=== PATIENT | male | born 1985 | race Caucasian/White ===

== ENCOUNTER 2016-09-02 08:48 | Emergency (ER) | payer OTHER ==
[~2016-09-02] VITALS: Ht 167.6 cm; Wt 90.0 kg
[2016-09-02 08:50] VITALS: BP 140/86; PULSE 110; RESP 20; TEMP 98.4; O2SAT 96
[2016-09-02] MEDS ORDERED: LISI2.5T3 PO (09:14)
[2016-09-02] MEDS ORDERED: OMEP10CA PO (09:14)
[2016-09-02] MEDS ORDERED: LANTUS2P SQ (09:14)
[2016-09-02] MEDS ORDERED: LIPI10TA PO (09:14)
[2016-09-02] MEDS ORDERED: NOVOLOGP2 SQ (09:14)
--- NOTE | 2016-09-02 09:56 | PD ---
HPI Chief Complaint: Abdominal Pain Time Seen by Provider: 09:41 Travel History International Travel<30 days: No Contact w/Intl Traveler<30days: No Traveled to known affect area: No History of Present Illness HPI The patient is a 30-year-old male who presents emergency department for left upper quadrant abdominal pain. The patient states he developed left upper quadrant abdominal pain earlier today while doing sit ups. The pain initially was sharp, located left upper quadrant, was worse with sitting upright. The patient did state his pain improved at rest, however, when he tried to sit up again he developed the pain in the left upper quadrant once again. The patient does note a history of hiatal hernia, diabetes, hypertension, hyperlipidemia, and sleep apnea. The patient is currently followed by a primary physician in [place], [place] where he used to live. He denies any known history of midline abdominal hernias or inguinal hernias. He denies any associated nausea, vomiting, diarrhea, or change in bowel habits. He does have a history of reflux which he attributes to his hiatal hernia. He also has a history of anemia secondary to his hiatal hernia, according to his report. He denies any history pancreatitis. [facility] Past Medical History Anemia: Yes Diabetes: Yes Patient Takes Glucophage: Yes Hypertension: Yes Past Surgical History Surgical History: No Previous Surgery Social History Alcohol Use: No Tobacco Use: No Substance Use: No Allergies-Medications (Allergen,Severity, Reaction): Coded Allergies: No Known Allergies (Unverified , 09/02/16) Reported Meds & Prescriptions Reported Meds & Active Scripts Active Reported Lipitor (Atorvastatin Calcium) 10 Mg Tab 10 Mg PO HS Omeprazole 10 Mg Cap 10 Mg PO DAILY Lantus Inj (Insulin Glargine) 1,000 Unit/10 Ml Vial 50 Units SQ HS Novolog Inj (Insulin Aspart) 1,000 Unit/10 Ml Vial 0 SQ DIRECTED Sliding Scale as directed. Lisinopril 2.5 Mg Tab 2.5 Mg PO DAILY Review of Systems Except as stated in HPI: all other systems reviewed are Neg General / Constitutional: No: Fever Cardiovascular: No: Chest Pain or Discomfort Respiratory: No: Shortness of Breath Gastrointestinal: Positive: Abdominal Pain, No: Nausea, Vomiting, Diarrhea Genitourinary: No: Dysuria Physical Exam Narrative GENERAL: Awake, alert, nontoxic-appearing 30-year-old male who appears his stated age and is in no acute respiratory distress. SKIN: Warm and dry. HEAD: Atraumatic. Normocephalic. EYES: Pupils equal and round. No scleral icterus. No injection or drainage. ENT: No nasal bleeding or discharge. Mucous membranes pink and moist. NECK: Trachea midline. No JVD. CARDIOVASCULAR: Regular rate and rhythm. No murmur appreciated. RESPIRATORY: No accessory muscle use. Clear to auscultation. Breath sounds equal bilaterally. GASTROINTESTINAL: Abdomen soft, non-tender, nondistended. No rebound tenderness. Pain elicited with standing upright against resistance. MUSCULOSKELETAL: No obvious deformities. No clubbing. No cyanosis. No edema. NEUROLOGICAL: Awake and alert. No obvious cranial nerve deficits. Motor grossly within normal limits. Normal speech. PSYCHIATRIC: Appropriate mood and affect; insight and judgment normal. Data Data Last Documented VS Vital Signs Date Time Temp Pulse Resp B/P Pulse Ox O2 Delivery O2 Flow Rate FiO2 09/02/16 08:50 98.4 110 20 140/[address] Abd/Pel W/O Iv Contrast (09/02/16 ) [facility] Medical Decision Making Medical Screen Exam Complete: Yes Emergency Medical Condition: Yes Medical Record Reviewed: Yes Interpretation(s) Last Impressions Abdomen/Pelvis CT 09/02/16 0000 Signed Impressions: Service Date/Time: August 10:32 - CONCLUSION: Fatty liver. Otherwise unremarkable CT of the abdomen and pelvis without contrast. Farhad aGlindo MD Differential Diagnosis Differential diagnoses includes incarcerated hernia, strangulated hernia, sports hernia, muscle strain, diaphragmatic hernia, PUD, pancreatitis. Narrative Course The patient's history and physical examination are consistent with muscle strain versus sports hernia. Therefore, CT the abdomen and pelvis was ordered to rule out intra-abdominal incarcerated hernia. CT of the abdomen and pelvis is unremarkable. No evidence of intra-abdominal incarcerated hernia. The patient most likely has an abdominal strain. The patient will be discharged home on anti-inflammatories and is advised to follow-up with his primary physician. Diagnosis Primary Impression: Abdominal wall strain Qualified Code: S39.011A - Abdominal wall strain, initial encounter Patient Instructions: General Instructions Additional Instructions: Medications as directed. Avoid exercises and movements that initiate pain. Ibuprofen as directed. Follow-up with your primary physician. Med/Other Pt SpecificInfo: Prescription(s) given Scripts Ibuprofen 400 Mg See487 Mg PO Q6H PRN (PAIN SCALE 1 TO 10) #20 TAB Ref 0 Prov:Craig Charles MD 09/02/16 Disposition: 01 DISCHARGE HOME Condition: Stable Craig Charles MD Sep 02, 2016 09:56
--- NOTE | 2016-09-02 10:51 | RADRPT ---
EXAM DATE/TIME: 09/02/2016 10:32 [facility] COMPARISON: No previous studies available for comparison. INDICATIONS : Left upper quadrant pain. ORAL CONTRAST: No oral contrast ingested. RADIATION DOSE: 12.95 CTDIvol (mGy) MEDICAL HISTORY : Hernia, hiatal. Hypertension. Diabetes mellitus type 2. SURGICAL HISTORY : None. ENCOUNTER: Initial ACUITY: 1 day PAIN SCALE: 2/10 LOCATION: Left upper quadrant TECHNIQUE: Volumetric scanning of the abdomen and pelvis was performed. Using automated exposure control and ad justment of the mA and/or kV according to patient size, radiation dose was kept as low as reasonably achievable to obtain optimal diagnostic quality images. FINDINGS: LOWER LUNGS: The visualized lower lungs are clear. LIVER: There is a fatty liver without focal lesion. There is no dilation of the biliary tree. No calcified gallstones. SPLEEN: Normal size without lesion. PANCREAS: Within normal limits. KIDNEYS: Normal in size and shape. There is no mass, stone, or hydronephrosis. ADRENAL GLANDS: Within normal limits. VASCULAR: There is no aortic aneurysm. BOWEL/MESENTERY: The stomach, small bowel, and colon demonstrate no acute abnormality. There is no free intraperitone al air or fluid. ABDOMINAL WALL: Within normal limits. RETROPERITONEUM: There is no lymphadenopathy. BLADDER: No wall thickening or mass. REPRODUCTIVE: Within normal limits. INGUINAL: There is no lymphadenopathy or hernia. MUSCULOSKELETAL: Within normal limits for patient age. CONCLUSION: Fatty liver. Otherwise unremarkable CT of the abdomen and pelvis without contrast. Farhad Galindo MD on September 02, 2016 at 10:48 Board Certified Radiologist. This report was verified electronically.
[2016-09-02] MEDS ORDERED: IBUP400T20 PO (11:12)
== END 2016-09-02 11:18 | disposition home or self-care (01) ==
LOC: NETRI 08:48
DX: S39.011A Strain of muscle, fascia and tendon of abdomen, initial encounter (principal); I10 Essential (primary) hypertension; X50.3XXA Overexertion from repetitive movements, initial encounter; Y93.B2 Activity, push-ups, pull-ups, sit-ups
CPT/HCPCS: 74176